=== PATIENT | male | born 1995 | race Caucasian/White ===

== ENCOUNTER 2022-10-11 12:35 | Emergency (ER) | payer OTHER ==
[~2022-10-11] VITALS: Ht 188 cm; Wt 104.3 kg
--- NOTE | 2022-10-11 12:51 | NUR ---
MD AT BEDSIDE FOR EVALUATION
[2022-10-11] MEDS ORDERED: AMOX-430 PO (12:55)
== END 2022-10-11 13:02 | disposition home or self-care (01) ==
LOC: ER 12:35
DX: J32.9 Chronic sinusitis, unspecified (principal)
CPT/HCPCS: A4663